=== PATIENT | male | born 1995 | race Caucasian/White ===

== ENCOUNTER 2017-09-20 22:54 | Emergency (ER) | payer SELFPAY ==
[2017-09-20] MEDS ORDERED: oxyCODONE/Acetamin 5/325 MG* TAB PO ONE (23:41)
[2017-09-20] MEDS ORDERED: Ibuprofen TAB* 800 MG PO ONE (23:41)
[2017-09-20] MEDS ORDERED: Tetan/Diph/Pertus SYR(Tdap)* 0.5 ML SYR(BOOSTRIX) use SYR IM ONE (23:41)
[2017-09-20] MEDS ORDERED: Silver Sulfadiazine 1% 400gm* 1 APPLIC JAR TOPICAL ONE (23:52)
--- NOTE | 2017-09-20 23:53 | ED ---
Skin Complaint - HPI Summary HPI Summary: Patient presents with bilateral foot hook at about 2200 tonight. 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 He was wearing socks and shoes which she quickly removed to find redness and blistering over his feet. His coworkers brought him icewater rags to apply to the areas. Pain is significant at this time however he is remaining calm. Denies numbness tingling or weakness. He has not had needing for pain prior to arrival. He is unsure of his last tetanus shot. - History of Current Complaint Chief Complaint: EDBurnSmokeInh Time Seen by Provider: 09/20/17 23:31 Stated Complaint: BURNT FOOT ON GREASE Hx Obtained From: Patient Pain Intensity: 5 - Allergy/Home Medications Allergies/Adverse Reactions: Allergies Allergy/AdvReac Type Severity Reaction Status Date / Time No Known Allergies Allergy Verified 09/20/17 22:57 PMH/Surg Hx/FS Hx/Imm Hx Previously Healthy: Yes Endocrine/Hematology History: Denies: Hx Anticoagulant Therapy, Hx Blood Disorders, Hx Diabetes, Autoimmune Disease - Immunization History Immunizations Up to Date: No Infectious Disease History: No Infectious Disease History: Denies: Hx of Known/Suspected MRSA, Traveled Outside the [place] in Last 30 Days - Family History Known Family History: Positive: None - Social History Occupation: Employed Full-time - 2 jobs Lives: Alone Alcohol Use: Weekly Substance Use Type: Reports: Marijuana - "to relax after work" Hx Tobacco Use: Yes Smoking Status (MU): Current Every Day Smoker Review of Systems Positive: no symptoms reported Positive: Myalgia, Edema Skin: Other - hook Neurological: Negative Psychological: Normal All Other Systems Reviewed And Are Negative: Yes Physical Exam Triage Information Reviewed: Yes Vital Signs On Initial Exam: Initial Vitals Temp Pulse Resp BP Pulse Ox 97.9 F 85 20 142/93 99 09/20/17 22:55 09/20/17 22:55 09/20/17 22:55 09/20/17 22:55 09/20/17 22:55 Vital Signs Reviewed: Yes Appearance: Positive: Well-Appearing, Well-Nourished, Pain Distress - moderate Skin: Positive: Warm, Skin Color Reflects Adequate Perfusion - 2nd degree, partial thickness burn - 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 Course/Dx - Diagnoses Provider Diagnoses: Partial thickness hook of multiple sites Discharge - Sign-Out/Discharge Documenting (check all that apply): Discharge/Admit/Transfer - Discharge Plan Condition: Stable Disposition: HOME Prescriptions: Ibuprofen TAB* [Motrin TAB* 800 MG] 800 mg PO Q8HR PRN #20 tab PRN Reason: Pain oxyCODONE/Acetamin 5/325 MG* [Percocet 5/325 TAB*] 1 tab PO Q6H PRN #20 tab MDD 4 PRN Reason: Pain Silver Sulfadiazine 1% 400gm* [SILVadine 1% 400 gm jar*] 1 applic TOPICAL BID # 1 jar Patient Education Materials: Second Degree Burn (ED) Forms: *Work Release Referrals: Casey Ring MD [Medical Doctor] - Additional Instructions: You appear to have multiple second-degree hook on your feet he appear to have second-degree hook on both of your feet. It is important that you take good care of her wounds. This may be done by gently washing the areas with soap and water and rinsing well. He may then pack the areas dry taking care not to break your blisters. Reapply Silvadene one to 2 times a day and redress with a nonstick dressing followed by an Дмитрий wrap to protect the skin and provide pain relief. Use crutches to avoid weightbearing on your left foot especially over the next 3 weeks. He may advance to weightbearing as tolerated. He may take ibuprofen alternating with Percocet as needed for pain. It is important that you follow-up with the wound care center by the end of the week for recheck of your wounds. Because of the location, he may have complications with scarring. It is important that she follow with wound care to prevent complications of your injury. Call tomorrow to schedule an appointment. *If you develop fever, chills, purulent drainage, streaking of redness up her legs, seek medical attention sooner. - Billing Disposition and Condition Condition: STABLE Disposition: HOME
[2017-09-21 00:31] VITALS: BP 121/73
== END 2017-09-21 00:30 | disposition home or self-care (01) ==
LOC: ED 22:54
DX: T25.222A Burn of second degree of left foot, initial encounter (principal); T25.221A Burn of second degree of right foot, initial encounter; X10.2XXA Contact with fats and cooking oils, initial encounter; Y93.89 Activity, other specified; Y92.511 Restaurant or cafe as the place of occurrence of the external cause; Y99.0 Civilian activity done for income or pay; Z23 Encounter for immunization; F17.200 Nicotine dependence, unspecified, uncomplicated
CPT/HCPCS: 90471; 90715; 99283; A9270-GY